=== PATIENT | female | born 1950 | race Two or more races ===

== ENCOUNTER 2022-08-17 09:22 | Inpatient (IN) | payer BC, MEDICARE, OTHER ==
[~2022-08-17] VITALS: Ht 170.2 cm; Wt 50.9 kg
[2022-08-17 10:20] LABS: BASOPHILS % 0.4 % (0.0-2.0); EOSINOPHILS % 0.1 % (0.0-5.0); HEMATOCRIT. 45.1 % (36.0-48.0); HEMOGLOBIN. 15.2 g/dL (12.0-16.0); MEAN CORPUSCULAR HEMOGLOBIN 29.9 pg (28.0-32.0); MEAN CORPUSCULAR VOLUME 88.5 fL (81.0-99.0); MONOCYTES % 3.3 % (2.0-8.0); NEUTROPHILS % 87.2 % (40.0-76.0); RED BLOOD CELL COUNT 5.09 mill/uL (4.2-5.4); RED CELL DISTRIBUTION WIDTH 13.5 % (11.6-14.6)
[2022-08-17 10:28] LABS: CHLORIDE 105 mEq/L (98-107)
[2022-08-17 10:42] LABS: ETHANOL BLOOD < 10 mg/dL
[2022-08-17 12:35] LABS: MEAN PLATELET VOLUME 10.8 fl (7.4-10.4); PLATELET 146 x1000/uL (130-400)
[2022-08-17] MEDS ORDERED: ACETAMINOPHEN 325MG TABLET PO PRN ×2 (13:30)
[2022-08-17] MEDS ORDERED: SODIUM CHLORIDE 0.45% 1,000 ML IV ONE (13:30)
[2022-08-17] MEDS ORDERED: IPRATROPIUM/ALBUTEROL 0.5-3(2.5)MG/3ML NEB HHN PRN (13:30)
[2022-08-17] MEDS ORDERED: ONDANSETRON HCL 4MG/2ML INJ IV PRN (13:30)
[2022-08-17] MEDS ORDERED: DOCUSATE SODIUM 100MG CAPSULE PO PRN (13:30)
[2022-08-17] MEDS ORDERED: GUAIFENESIN 200MG/10ML SUGAR FREE UDC PO PRN (13:30)
[2022-08-17] MEDS ORDERED: MAGNESIUM/ALUMINUM HYDROXIDE/SIMETHICONE 30ML UDC PO PRN (13:30)
[2022-08-17] MEDS ORDERED: SODIUM CHLORIDE 0.45% 500 ML IV ONE ×2 (13:45)
[2022-08-17 15:38] LABS: D-DIMER 1.22 mg/L FEU (<0.50); PROTHROMBIN TIME 10.8 sec (9.6-11.0)
[2022-08-17 17:53] LABS: CLARITY URINE CLOUDY (CLEAR); COLOR URINE YELLOW (YELLOW); KETONES URINE TRACE (NEGATIVE); LEUKOCYTE ESTERASE URINE 1+ (NEGATIVE); NITRITE URINE POSITIVE (NEGATIVE); OCCULT BLOOD URINE NEGATIVE (NEGATIVE); PH URINE 7.5 (4.5-8.0); PROTEIN URINE NEGATIVE (NEGATIVE); UROBILINOGEN URINE 0.2 E.U./dL (0.2-1.0)
[2022-08-17 18:08] LABS: *AMPHETAMINES SCREEN URINE NEGATIVE (NEGATIVE); *BARBITURATES SCREEN URINE NEGATIVE (NEGATIVE); *BENZODIAZEPINES SCREEN URINE NEGATIVE (NEGATIVE); *COCAINE SCREEN URINE NEGATIVE (NEGATIVE); CANNABINOID URINE SCREEN NEGATIVE (NEGATIVE); METHADONE URINE SCREEN NEGATIVE (NEGATIVE); OPIATES URINE SCREEN NEGATIVE (NEGATIVE); PHENCYCLIDINE URINE SCREEN NEGATIVE (NEGATIVE)
[2022-08-17] MEDS: CLONIDINE 0.1MG TABLET PO PRN (20:49)
[2022-08-17] MEDS: FAMOTIDINE 20MG TABLET PO SCH (21:45)
[2022-08-17] MEDS: ENOXAPARIN 40MG/0.4ML SYR SUBCUT SCH (21:45)
[2022-08-17 23:23] VITALS: BP 155/76
[2022-08-18] VITALS (10 sets, daily range): BP systolic 103–161; BP diastolic 60–85
[2022-08-18 07:08] LABS: BASOPHILS % 1.1 % (0.0-2.0); EOSINOPHILS % 1.6 % (0.0-5.0); HEMOGLOBIN. 14.1 g/dL (12.0-16.0); LYMPHOCYTES % 25.3 % (20.0-50.0); MEAN CORPUSCULAR HEMOGLOBIN 30.2 pg (28.0-32.0); MEAN CORPUSCULAR VOLUME 87.8 fL (81.0-99.0); MEAN PLATELET VOLUME 10.3 fl (7.4-10.4); MONOCYTES % 10.3 % (2.0-8.0); NEUTROPHILS % 61.7 % (40.0-76.0); PLATELET 142 x1000/uL (130-400); RED BLOOD CELL COUNT 4.67 mill/uL (4.2-5.4); RED CELL DISTRIBUTION WIDTH 13.3 % (11.6-14.6)
[2022-08-18 07:27] LABS: CHLORIDE 108 mEq/L (98-107)
[2022-08-18 07:40] LABS: HDL CHOLESTEROL 66 mg/dL (40-59); LDL CHOLESTEROL 91 mg/dL (5-100); T4 FREE 1.14 ng/dL (0.76-1.46)
[2022-08-18] MEDS ORDERED: CEFTRIAXONE 1 G PREMIX 50 ML IV SCH (10:45)
[2022-08-18] MEDS ORDERED: INFLUENZA VACCINE 05/PF 0.5 ML SYRINGE IM ONE (11:00)
[2022-08-18] MEDS: CEFTRIAXONE 1,000 MG in DEXTROSE 5% WATER 50 ML IV SCH (12:02)
[2022-08-18] MEDS: FAMOTIDINE 20MG TABLET PO SCH (20:52)
[2022-08-18] MEDS: ENOXAPARIN 40MG/0.4ML SYR SUBCUT SCH (20:53)
[2022-08-19] VITALS (7 sets, daily range): BP systolic 123–166; BP diastolic 39–98
[2022-08-19] MEDS: CLONIDINE 0.1MG TABLET PO PRN (08:20)
[2022-08-19] MEDS: CEFTRIAXONE 1,000 MG in DEXTROSE 5% WATER 50 ML IV SCH (12:23)
[2022-08-19] MEDS: FAMOTIDINE 20MG TABLET PO SCH (20:39)
[2022-08-19] MEDS: ENOXAPARIN 40MG/0.4ML SYR SUBCUT SCH (20:40)
[2022-08-20] VITALS: BP 165/75
[2022-08-20] MEDS: CLONIDINE 0.1MG TABLET PO PRN (00:12)
[2022-08-20 04:15] VITALS: BP 149/77
[2022-08-20] MEDS ORDERED: SULF1TAB48 MT (07:53)
[2022-08-20 08:00] VITALS: BP 130/60
[2022-08-20 11:20] VITALS: BP 139/79
[2022-08-20 11:23] VITALS: BP 139/79
[2022-08-20] MEDS: CEFTRIAXONE 1,000 MG in DEXTROSE 5% WATER 50 ML IV SCH (12:11)
== END 2022-08-20 14:57 | disposition home or self-care (01) | DRG 422 ==
LOC: ER 09:49 → MICUSO 10:41 → 3WST 23:11
PROVIDERS: ADMIT Internal Medicine; ATTEND Internal Medicine
DX: E86.0 Dehydration (principal); I95.9 Hypotension, unspecified; N39.0 Urinary tract infection, site not specified; R00.1 Bradycardia, unspecified; Z20.822 Contact with and (suspected) exposure to COVID-19
CPT/HCPCS: 36415; 71045; 80053; 80061; 80305; 80320; 81003; 83036; 83880; 84439; 84443; 84484; 85025; 85379; 87077; 87186; 87426; 90686; 93005; 93306; 93880; 93970; 99285; J0696; J1650; J7060; G0480